=== PATIENT | male | born 1995 | race Caucasian/White ===

== ENCOUNTER 2022-03-28 04:30 | Emergency (ER) | payer OTHER ==
[2022-03-28] MEDS ORDERED: Ondansetron 4 MG/2 ML SDV IVPUSH ONE (04:31)
[2022-03-28] MEDS ORDERED: Sodium Chloride 0.9% 10 ML Syringe FLUSH PRN (04:31)
[2022-03-28] MEDS ORDERED: Sodium Chloride 0.9% 1,000 ML IV ONE (04:31)
[2022-03-28] MEDS ORDERED: Sodium Chloride 0.9% 2.5 ML Syringe FLUSH PRN (04:31)
[2022-03-28 05:04] LABS: CARBON DIOXIDE,CO2 27.1 mmol/L (21.0-32.0); POTASSIUM,K 3.9 mmol/L (3.5-5.1)
[2022-03-28] MEDS ORDERED: Octyl 2-Cyanoacrylate 1 g/1 mL 1 APPLIC PEN TOP ONE (05:30)
[2022-03-28] MEDS ORDERED: Iopamidol 755 MG/ML 500 ML Multipack Bottle IVPUSH ONE (05:30)
[2022-03-28 07:45] LABS: CORONAVIRUS COVID-19 NAA NEGATIVE (NEGATIVE); INFLUENZA A NAA NEGATIVE (NEGATIVE); INFLUENZA B NAA NEGATIVE (NEGATIVE)
== END 2022-03-28 09:25 ==
LOC: MW.ED 04:30
DX: S09.90XA Unspecified injury of head, initial encounter (principal); S01.111A Laceration without foreign body of right eyelid and periocular area, initial encounter; E27.49 Other adrenocortical insufficiency; Z20.822 Contact with and (suspected) exposure to COVID-19; V89.2XXA Person injured in unspecified motor-vehicle accident, traffic, initial encounter; Y92.410 Unspecified street and highway as the place of occurrence of the external cause
CPT/HCPCS: 0240U; 12001; 36415; 70450; 70486; 71260; 72125; 72128; 72131; 73552; 74177; 80053; 80305; 80307; 81003; 83690; 85025; 96361; 96374; 99285; A9270; J2405; J3490; J7030; Q9967; 12011